=== PATIENT | female | born 2000 ===

== ENCOUNTER 2020-11-06 17:49 | Emergency (ER) | payer MEDICAID ==
[2020-11-06 19:10] VITALS: BP 116/66
--- NOTE | 2020-11-06 19:13 | Emergency Department Report ---
ED ENT HPI - General Chief complaint: Dental/Oral Stated complaint: TOOH PAIN Time Seen by Provider: 11/06/20 19:06 Source: patient Mode of arrival: Ambulatory Limitations: No Limitations - History of Present Illness Initial comments: Patient is a 20-year-old female presents emergency room with complaints of a possible dental abscess to the right lower gumline that occurred a week ago. She states that it has been increasing in size. She states that she has had right lower dental pain for couple of weeks. She has not seen a dentist for this complaint. She states that she last saw a dentist a year ago. She denies any fever, nausea, vomiting, difficulty swallowing, facial swelling. No past medical history. No allergies medications. She is currently on her menstrual cycle. - Related Data Previous Rx's Medication Instructions Recorded Last Taken Type Chlorhexidine Mouthwash [Peridex] 15 ml MM BID #1 bottle 11/06/20 Unknown Rx Ibuprofen [Motrin 400 MG tab] 400 mg PO Q8H PRN #20 tablet 11/06/20 Unknown Rx Penicillin Vk [Veetids TAB] 500 mg PO QID 7 Days #56 tablet 11/06/20 Unknown Rx Allergies Allergy/AdvReac Type Severity Reaction Status Date / Time No Known Allergies Allergy Unverified 11/06/20 19:06 ED Dental HPI - General Chief complaint: Dental/Oral Stated complaint: TOOH PAIN Time Seen by Provider: 11/06/20 19:06 Source: patient Mode of arrival: Ambulatory Limitations: No Limitations - Related Data Previous Rx's Medication Instructions Recorded Last Taken Type Chlorhexidine Mouthwash [Peridex] 15 ml MM BID #1 bottle 11/06/20 Unknown Rx Ibuprofen [Motrin 400 MG tab] 400 mg PO Q8H PRN #20 tablet 11/06/20 Unknown Rx Penicillin Vk [Veetids TAB] 500 mg PO QID 7 Days #56 tablet 11/06/20 Unknown Rx Allergies Allergy/AdvReac Type Severity Reaction Status Date / Time No Known Allergies Allergy Unverified 11/06/20 19:06 ED Review of Systems ROS: Stated complaint: TOOH PAIN Other details as noted in HPI Comment: All other systems reviewed and negative ED Past Medical Hx - Past Medical History Previous Medical History?: Yes Hx Asthma: Yes - Surgical History Past Surgical History?: Yes Additional Surgical History: C -section - Social History Smoking Status: Never Smoker Substance Use Type: None - Medications Home Medications: Home Medications Medication Instructions Recorded Confirmed Last Taken Type Chlorhexidine Mouthwash [Peridex] 15 ml MM BID #1 bottle 11/06/20 Unknown Rx Ibuprofen [Motrin 400 MG tab] 400 mg PO Q8H PRN #20 tablet 11/06/20 Unknown Rx Penicillin Vk [Veetids TAB] 500 mg PO QID 7 Days #56 tablet 11/06/20 Unknown Rx ED Physical Exam - General Limitations: No Limitations General appearance: alert, in no apparent distress - Head Head exam: Present: atraumatic, normocephalic - Eye Eye exam: Present: normal appearance - ENT ENT exam: Present: mucous membranes moist, other (there is a missing right lower back molar, there is edema of the gumline in that region, no fluctuance, no necrosis, there is a 0.5 cm area of induration to the right upper gumline, uvula is midline, no uvular edema or deviation, no trismus, no tongue elevation, no muffled voice, no facial edema) - Respiratory Respiratory exam: Absent: respiratory distress, accessory muscle use - Neurological Exam Neurological exam: Present: alert, oriented X3 - Psychiatric Psychiatric exam: Present: normal affect, normal mood - Skin Skin exam: Present: warm, dry, intact ED Course Vital Signs 11/06/20 18:13 Temperature 99.0 F Pulse Rate 87 Respiratory 16 Rate Blood Pressure 116/66 O2 Sat by Pulse 100 Oximetry ED Medical Decision Making - Medical Decision Making Patient is a 20-year-old female presents emergency room with complaints of a possible dental abscess to the right lower gumline that occurred a week ago. She states that it has been increasing in size. She states that she has had right lower dental pain for couple of weeks. She has not seen a dentist for this complaint. She states that she last saw a dentist a year ago. She denies any fever, nausea, vomiting, difficulty swallowing, facial swelling. No past medical history. No allergies medications. She is currently on her menstrual cycle. Vitals are normal. On exam there is a missing right lower back molar, there is edema of the gumline in that region, no fluctuance, no necrosis, there is a 0.5 cm area of induration to the right upper gumline, uvula is midline, no uvular edema or deviation, no trismus, no tongue elevation, no muffled voice, no facial edema. Examination consistent with infected dental caries/dental abscess. No signs of facial cellulitis or Lisandro's at this time. Patient given prescription for penicillin VK, chlorhexidine mouthwash, ibuprofen. Advised patient Please take medication as prescribed. Increase your water intake. Please take antibiotics with food. Follow-up with a dentist. Is very importantly follow-up. Return to emergency room for any new or worsening symptoms. Critical care attestation.: If time is entered above; I have spent that time in minutes in the direct care of this critically ill patient, excluding procedure time. ED Disposition Clinical Impression: Dental abscess, Dental caries Disposition: TO HOME OR SELFCARE Is pt being admited?: No Does the pt Need Aspirin: No Condition: Stable Instructions: Dental Abscess Additional Instructions: Please take medication as prescribed. Increase your water intake. Please take antibiotics with food. Follow-up with a dentist. Is very importantly follow- up. Return to emergency room for any new or worsening symptoms. Prescriptions: Ibuprofen [Motrin 400 MG tab] 400 mg PO Q8H PRN #20 tablet PRN Reason: pain Chlorhexidine Mouthwash [Peridex] 15 ml MM BID #1 bottle Penicillin Vk [Veetids TAB] 500 mg PO QID 7 Days #56 tablet Referrals: [facility] [Outside] - 2-3 Days [facility] [Outside] - 2-3 Days Time of Disposition: 19:12 Print Language: PARAGUAYAN
== END 2020-11-06 19:30 | disposition home or self-care (01) ==
LOC: ED 17:49
DX: K04.7 Periapical abscess without sinus (principal); K02.9 Dental caries, unspecified; J45.909 Unspecified asthma, uncomplicated; Z98.890 Other specified postprocedural states; Z79.1 Long term (current) use of non-steroidal anti-inflammatories (NSAID); Z79.899 Other long term (current) drug therapy
CPT/HCPCS: 99282